=== PATIENT | male | born 1950 | race Caucasian/White ===

== ENCOUNTER → 2017-08-20 | Outpatient (CLI) | payer OTHER | END | disposition home or self-care (01) | LOC: ROC 09:33 | PROVIDERS: ATTEND Radiology Radiation Oncology | DX: C61 Malignant neoplasm of prostate (principal); E78.5 Hyperlipidemia, unspecified; E55.9 Vitamin D deficiency, unspecified; E11.9 Type 2 diabetes mellitus without complications; I10 Essential (primary) hypertension; M06.9 Rheumatoid arthritis, unspecified; K62.6 Ulcer of anus and rectum; G47.33 Obstructive sleep apnea (adult) (pediatric); N35.9 Urethral stricture, unspecified; Z90.49 Acquired absence of other specified parts of digestive tract | CPT/HCPCS: 99215; G0463 ==